=== PATIENT | male | born 1930 | race Two or more races ===

== ENCOUNTER 2019-08-17 05:24 | Emergency (ER) | payer MEDICARE, MEDICAID ==
[2019-08-17] MEDS ORDERED: Sodium Chloride 0.9% 10 ML Syringe FLUSH PRN (05:35)
--- NOTE | 2019-08-17 05:39 | EDM.PDOC ---
ED HPI GENERAL MEDICAL PROBLEM - General Chief Complaint: General Stated Complaint: [facility] Time Seen by Provider: 08/17/19 05:34 Source of Information: Reports: Patient, EMS History Limitations: Reports: No Limitations - History of Present Illness INITIAL COMMENTS - FREE TEXT/NARRATIVE: The patient is an 89 y/o M skilled nursing resident brought in by [facility] due to concern for hypoxia. He has a history of COPD and is normally on 3L NC. He also has a history of CHF, DM, HTN, a-fib on anticoagulation, and humerus fracture. During the night he states he had an upset stomach. [place] like his stomach was twisting and turning. Had nausea but no vomiting. No diarrhea. The abdominal complaint resolved spontaneously, but when staff were checking on him during the event they reported SpO2 40-70. However, when EMS arrived his SpO2 was normal without intervention. There is no report of LOC or respiratory distress. It is not clear if the SpO2 was associated with a good waveform. Patient denies recent fever. Denies CP or SOB. No lower extremity pain or swelling. He states he feels completely fine now. No complaint. - Related Data Allergies Allergy/AdvReac Type Severity Reaction Status Date / Time tree nut Allergy Cannot Verified 08/17/19 05:37 Remember Home Meds: Home Meds Acetaminophen [Tylenol Arthritis Pain] 650 mg PO BID 08/17/19 [History] Amiodarone [Cordarone] 200 mg PO DAILY 08/17/19 [History] Apixaban [Eliquis] 2.5 mg PO BID 08/17/19 [History] Ascorbic Acid [Vitamin C] 500 mg PO BID 08/17/19 [History] Aspirin 81 mg PO DAILY 08/17/19 [History] Budesonide [Pulmicort] 2 ml NEB BID 08/17/19 [History] Ferrous Sulfate 325 mg PO MOWEFRSA 08/17/19 [History] Formoterol Fumarate [Perforomist] 2 ml NEB BID 08/17/19 [History] Furosemide 40 mg PO DAILY 08/17/19 [History] Levothyroxine Sodium [Synthroid] 100 mcg PO DAILY 08/17/19 [History] Lisinopril 5 mg PO DAILY 08/17/19 [History] Melatonin 10 mg PO DAILY 08/17/19 [History] Metoprolol Succinate 12.5 mg PO DAILY 08/17/19 [History] Multivitamin [Multivitamins] 1 tab PO DAILY 08/17/19 [History] Ondansetron [Zofran ODT] 4 mg PO DAILY PRN 08/17/19 [History] Oxymetazoline HCl [Nasal [place]] 2 spray INH Q8H 08/17/19 [History] Polyethylene Glycol 3350 [MiraLAX] 17 gm PO DAILY 08/17/19 [History] Sennosides [Senna] 8.6 mg PO DAILY 08/17/19 [History] Tamsulosin [Flomax] 0.4 mg PO DAILY 08/17/19 [History] atorvaSTATin Calcium [Atorvastatin Calcium] 40 mg PO DAILY 08/17/19 [History] traZODone HCl [Trazodone HCl] 50 mg PO DAILY 08/17/19 [History] ED ROS GENERAL - Review of Systems Review Of Systems: See Below Constitutional: Denies: Fever HEENT: Reports: No Symptoms Respiratory: Denies: Shortness of Breath Cardiovascular: Denies: Chest Pain Endocrine: Reports: No Symptoms GI/Abdominal: Denies: Vomiting : Reports: No Symptoms Musculoskeletal: Reports: No Symptoms Skin: Reports: No Symptoms Neurological: Reports: No Symptoms Psychiatric: Reports: No Symptoms Hematologic/Lymphatic: Reports: Easy Bruising ED EXAM, GENERAL - Physical Exam Exam: See Below Exam Limited By: No Limitations General Appearance: Alert, WD/WN, No Apparent Distress Eye Exam: Bilateral Eye: Normal Inspection Ears: Normal External Exam Nose: Normal Inspection Throat/Mouth: Normal Inspection, Normal Oropharynx, Normal Voice, No Airway Compromise Head: Atraumatic, Normocephalic Neck: Normal Inspection, Supple Respiratory/Chest: No Respiratory Distress, No Accessory Muscle Use, Other (few scattered expiratory wheezes bilaterally ) Cardiovascular: Normal Peripheral Pulses, Regular Rate, Rhythm, No Edema GI/Abdominal: Normal Bowel Sounds, Soft, Non-Tender, No Distention Back Exam: Normal Inspection Extremities: Other (scattered ecchymosis, extensive on L forearm, no tenderness) Neurological: Alert, Oriented, Normal Cognition, No Motor/Sensory Deficits Psychiatric: Normal Affect, Normal Mood Skin Exam: Warm, Dry Course - Vital Signs Last Recorded V/S: Last Vital Signs Temp 36.3 C 08/17/19 05:27 Pulse 81 08/17/19 05:27 Resp 20 08/17/19 05:27 BP 126/47 L 08/17/19 05:27 Pulse Ox 93 L 08/17/19 05:27 - Orders/Labs/Meds Orders: Active Orders 24 hr Category Date Time Status EKG 12 Lead [EKG Documentation Completion] [RC] STAT Care 08/17/19 05:35 Active Peripheral IV Care [RC] . DIRECTED Care 08/17/19 05:35 Active Chest 1V Frontal [CR] Stat Exams 08/17/19 05:35 Taken Sodium Chloride 0.9% [Saline Flush] Med 08/17/19 05:35 Active 10 ml FLUSH ASDIRECTED PRN Peripheral IV Insertion Adult [OM.PC] Routine Oth 08/17/19 05:35 Ordered Medication Orders Sodium Chloride (Saline Flush) 10 ml FLUSH ASDIRECTED PRN PRN Reason: Keep Vein Open Last Admin: 08/17/19 05:43 Dose: 10 ml Labs: Laboratory Tests 08/17/19 08/17/19 08/17/19 Range/Units 05:30 05:30 05:30 WBC 7.31 (4.23-9.07) K/mm3 RBC 2.95 L (4.63-6.08) M/mm3 Hgb 8.5 L (13.7-17.5) gm/dl Hct 29.3 L (40.1-51.0) % MCV 99.3 H (79.0-92.2) fl MCH 28.8 (25.7-32.2) pg MCHC 29.0 L (32.2-35.5) g/dl RDW Std Deviation 54.5 H (35.1-43.9) fL Plt Count 193 (163-337) K/mm3 MPV 10.3 (9.4-12.3) fl Neut % (Auto) 81.3 H (34.0-67.9) % Lymph % (Auto) 8.8 L (21.8-53.1) % [place] % (Auto) 9.3 (5.3-12.2) % Eos % (Auto) 0.5 L (0.8-7.0) Baso % (Auto) 0.1 (0.1-1.2) % Neut # (Auto) 5.94 H (1.78-5.38) K/mm3 Lymph # (Auto) 0.64 L (1.32-3.57) K/mm3 [place] # (Auto) 0.68 (0.30-0.82) K/mm3 Eos # (Auto) 0.04 (0.04-0.54) K/mm3 Baso # (Auto) 0.01 (0.01-0.08) K/mm3 Manual Slide Review Abnormal smear PT 11.2 (9.7-12.0) SECONDS INR 1.03 Sodium 142 (136-145) mEq/L Potassium 5.1 (3.5-5.1) mEq/L Chloride 100 (98-107) mEq/L Carbon Dioxide 43 H* (21-32) mEq/L Anion Gap 4.1 L (5-15) BUN 29 H (7-18) mg/dL Creatinine 0.8 (0.7-1.3) mg/dL Est Cr Clr Drug Dosing TNP Estimated GFR (MDRD) > 60 (>60) mL/min BUN/Creatinine Ratio 36.3 H (14-18) Glucose 133 H (83-115) mg/dL Calcium 8.9 (8.5-10.1) mg/dL Magnesium 2.2 (1.8-2.4) mg/dl Total Bilirubin 0.4 (0.2-1.0) mg/dL AST 26 (15-37) U/L ALT 31 (16-63) U/L Alkaline Phosphatase 84 (46-116) U/L Troponin I 0.052 (0.00-0.056) ng/mL Total Protein 6.1 L (6.4-8.2) g/dl Albumin 2.9 L (3.4-5.0) g/dl Globulin 3.2 gm/dL Albumin/Globulin Ratio 0.9 L (1-2) Lipase 141 (73-393) U/L Meds: Medications Generic Name Dose Route Start Last Admin Trade Name Freq PRN Reason Stop Dose Admin Sodium Chloride 10 ml 08/17/19 05:35 08/17/19 05:43 Saline Flush FLUSH 10 ml ASDIRECTED PRN Administration Keep Vein Open - Re-Assessments/Exams Free Text/Narrative Re-Assessment/Exam: 08/17/19 06:31 EKG shows LBBB, no prior available ofr comparison. CXR shows mild interstial edema bilaterally, R mid lung density ?atelectasis, no focal infiltrate. No fever, normal vital signs here, normal SpO2 on his usual 3L, no respiratory distress. His abdominal exam is benign. He feels completely fine. Labs show CO2 retention (which is listed on his problem list from skilled nursing) but as he is alert and has no respiratory complaint I suspect this is chronic. Mild anemia with HCT 29 - anemia is also listed on his problem list, baseline HCT unknown. Given context, suspect low SpO2 from skilled nursing was probably an error reading since there was no report of respiratory symptoms or mental status change during the event. His abdominal complaints from the night resolved spontaneously prior to arrival. Will dc back to skilled nursing. 08/17/19 06:34 Departure - Departure Time of Disposition: 06:35 Disposition: Home, Self-Care 01 Clinical Impression: History of chronic carbon dioxide retention, Chronic anemia, Ecchymosis of forearm - Discharge Information Referrals: Kris Uribe MD [Primary Care Provider] - Forms: ED Department Discharge Additional Instructions: 1. Follow up with your regular doctor as needed. 2. Return to the ED as needed for difficulty breathing, severe pain, vomiting, fever, or other concerns. - My Orders Last 24 Hours: My Active Orders 08/17/19 05:35 EKG 12 Lead [EKG Documentation Completion] [RC] STAT Peripheral IV Care [RC] . DIRECTED Chest 1V Frontal [CR] Stat Sodium Chloride 0.9% [Saline Flush] 10 ml FLUSH ASDIRECTED PRN Peripheral IV Insertion Adult [OM.PC] Routine - Assessment/Plan Last 24 Hours: My Active Orders 08/17/19 05:35 EKG 12 Lead [EKG Documentation Completion] [RC] STAT Peripheral IV Care [RC] . DIRECTED Chest 1V Frontal [CR] Stat Sodium Chloride 0.9% [Saline Flush] 10 ml FLUSH ASDIRECTED PRN Peripheral IV Insertion Adult [OM.PC] Routine
--- NOTE | 2019-08-18 08:00 | CR ---
Chest: Portable view of the chest was obtained. Comparison: No previous chest x-ray. Nodular density is noted within the inferior right perihilar region. Thick linear density is noted within the right midlung. Haziness is noted within the left lung base. Heart size does not appear enlarged. Tortuous thoracic aorta is seen. Previous cervical spine surgery and lumbar spine surgery are noted. Osteopenia is present. Impression: 1. Nodular density within the inferior right perihilar region. This appears fairly dense but uncertain if this represents pulmonary nodule or mass or other etiology. Noncontrast chest CT would be needed to differentiate. 2. Thick area of atelectasis or scarring within the right midlung. 3. Haziness within the left base and mild area of pneumonia is difficult to exclude. Diagnostic code #9
== END 2019-08-17 09:09 | disposition home or self-care (01) ==
LOC: JD.ED 05:24
DX: D64.9 Anemia, unspecified (principal); R58 Hemorrhage, not elsewhere classified; J44.9 Chronic obstructive pulmonary disease, unspecified; I11.0 Hypertensive heart disease with heart failure; I50.9 Heart failure, unspecified; E11.9 Type 2 diabetes mellitus without complications; I48.91 Unspecified atrial fibrillation; Z87.09 Personal history of other diseases of the respiratory system; Z79.01 Long term (current) use of anticoagulants; Z91.018 Allergy to other foods; Z79.82 Long term (current) use of aspirin; Z79.51 Long term (current) use of inhaled steroids; Z79.899 Other long term (current) drug therapy
CPT/HCPCS: 36415; 71045; 71045-26; 80053; 83690; 83735; 84484; 85025; 85610; 93005; 99285-25